=== PATIENT | female | born 1945 | race Caucasian/White ===

== ENCOUNTER → 2016-02-23 | Outpatient (CLI) | payer OTHER, MEDICAID ==
--- NOTE | 2016-02-23 18:01 | DX ---
Thoracic spine series 2 views 1115 hours. History: Followup fusion. Findings: Comparison to June 23, 2015 and February 26, 2015. Pedicle screws and paraspinal rods are present from T5 through L3 in stable position and alignment. M arked compression of T9 is stable with bone graft material at this level. Vertebroplasty cement is pr esent at T8. No new compression fractures are appreciated. There are no new lytic or sclerotic osseou s lesions. Impression: 1. Stable thoracolumbar fusion with pedicle screws and paraspinal rods from T5 through L3 as detailed above.
== END ==
LOC: FIMAGING 11:11
PROVIDERS: ATTEND Physician Assistant Surgical
DX: Z09 Encounter for follow-up examination after completed treatment for conditions other than malignant neoplasm (principal); Z98.1 Arthrodesis status; M43.24 Fusion of spine, thoracic region

== ENCOUNTER → 2016-04-10 | Outpatient (CLI) | payer OTHER, MEDICAID | LOC: BHFA 11:30 | PROVIDERS: ATTEND Internal Medicine Cardiovascular Disease | DX: I35.0 Nonrheumatic aortic (valve) stenosis (principal) ==

== ENCOUNTER → 2016-04-19 | Outpatient (CLI) | payer OTHER, MEDICAID | LOC: BHCLAF 15:00 | PROVIDERS: ATTEND Internal Medicine Cardiovascular Disease | DX: I35.0 Nonrheumatic aortic (valve) stenosis (principal); E78.5 Hyperlipidemia, unspecified; I10 Essential (primary) hypertension; I25.810 Atherosclerosis of coronary artery bypass graft(s) without angina pectoris; R09.89 Other specified symptoms and signs involving the circulatory and respiratory systems | CPT/HCPCS: 93005-PO ==

== ENCOUNTER → 2016-06-05 | Outpatient (CLI) | payer OTHER, MEDICAID | LOC: BHFA 11:30 | PROVIDERS: ATTEND Internal Medicine Cardiovascular Disease | DX: R09.89 Other specified symptoms and signs involving the circulatory and respiratory systems (principal); E78.00 Pure hypercholesterolemia, unspecified; E78.5 Hyperlipidemia, unspecified ==

== ENCOUNTER → 2016-07-25 | Outpatient (CLI) | payer OTHER, MEDICAID | LOC: FIMAGING 12:55 | PROVIDERS: ATTEND Physician Assistant Surgical | DX: S22.070D Wedge compression fracture of T9-T10 vertebra, subsequent encounter for fracture with routine healing (principal); M50.323 Other cervical disc degeneration at C6-C7 level; M99.71 Connective tissue and disc stenosis of intervertebral foramina of cervical region; M12.88 Other specific arthropathies, not elsewhere classified, other specified site; M43.22 Fusion of spine, cervical region; M54.5 Low back pain; M54.6 Pain in thoracic spine; Z98.1 Arthrodesis status ==

== ENCOUNTER 2016-07-30 19:36 | Observation (INO) | payer OTHER, MEDICAID ==
--- NOTE | 2016-07-30 19:40 | EDPHY ---
H & P Time Seen by Provider: 07/30/16 19:37 HPI/ROS: CHIEF COMPLAINT: Passed out in the parking lot HISTORY OF PRESENT ILLNESS: 70-year-old woman history of coronary artery bypass surgery and diabetes was walking her dog and had an episode of syncope in the middle of parking lot. Landed on her right side. Brought in by EMS with glucose 160. The patient recalls that she was walking her dog pepper when she got discomfort in her head and then the next thing she knew she was lying on the ground with a bystander coming over to her. She did not get lightheaded or dizzy prior to the incident. She did not have chest pain or shortness of breath. Patient denies any injuries. She denies any change in her chronic neck or back pain after the fall. No weakness or numbness in extremities. No change in her chronically poor vision. REVIEW OF SYSTEMS: Eye: no change in vision, has chronic visual difficulties and is legally blind from her diabetes. ENT: no sore throat Cardiac: No chest pain Pulmonary: no cough or SOB Abdomen: Has chronic constipation, unchanged. No vomiting or abdominal pain. Musculoskeletal: Chronic neck and back pain, unchanged Skin: no rash Neuro: HPI Constitutional: no fever, she had decreased oral intake today and nothing to eat or drink yesterday. : Chronic urinary incontinence, unchanged A comprehensive 10 point review of systems is otherwise negative aside from elements mentioned in the history of present illness. PAST MEDICAL HISTORY: Coronary artery disease with coronary artery bypass grafting, insulin-dependent diabetes. Social history: Nonsmoker General Appearance: Alert and conversant, cooperative. Eyes: No scleral icterus. Extraocular motion intact. ENT, Mouth: Normal mucous membranes. No tongue laceration or abrasion. Respiratory: Normal respiratory effort, breath sounds equal, lungs are clear to auscultation. Cardiovascular: Regular rate and rhythm. 3/6 systolic murmur. Gastrointestinal: Abdomen is soft and non tender. Neurological: Alert and oriented x3. Normally conversant. Face symmetric, normal movement and sensation in all extremities. Skin: Warm and dry, no rashes. No bruising or laceration. Musculoskeletal: No midline spinal tenderness to palpation. Psychiatric: Not agitated. Emergency Department course/MDM: High risk patient with diabetes and cardiovascular disease presents with syncope without prodrome. Head CT, EKG, labs to include troponin. 2004: Hematocrit noted is increased from previous. 2039: Results discussed with the patient, plan to admit for syncope without a prodrome in a patient with multiple risk factors for dysrhythmia. Smoking Status: Never smoked Constitutional: Initial Vital Signs Temperature (C) 36.9 C 07/30/16 19:47 Heart Rate 86 07/30/16 19:47 Respiratory Rate 16 07/30/16 19:47 Blood Pressure 91/52 L 07/30/16 19:47 O2 Sat (%) 95 07/30/16 19:47 O2 Delivery Mode Room Air O2 (L/minute) 2 Allergies/Adverse Reactions: cyclobenzaprine HCl [From Flexeril] Allergy (Severe, Verified 07/30/16 19:50) HALLUCINATIONS diazepam [From Valium] Allergy (Severe, Verified 07/30/16 19:50) HALLUCINATIONS acetaminophen [From [place]] Allergy (Verified 07/30/16 19:50) Vomiting hydrocodone bitartrate [From [place]] Allergy (Verified 07/30/16 19:50) Vomiting Home Medications: Medication Instructions Recorded Rosuvastatin Calcium [Crestor 20mg 20 mg PO HS 01/06/14 (*)] Calcium Carb W/Vit D [Calcium Carb 500 mg PO BID #0 tab 02/26/15 W/Vit D 500/200 (*)] Insulin Pump 0 unit SQ AD 02/26/15 Lisinopril/Hctz 10/12.5 mg 1 ea PO DAILY #0 tab 02/26/15 [Zestoretic/Prinzide 10/12.5MG (*)] Polyethylene Glycol 3350 [Miralax 17 gm PO TID #0 pkt 02/26/15 17 gm (*)] Sennosides/Docusate Sodium 1 - 2 tab PO BID #0 tab 02/26/15 [Senokot-S] Solifenacin Succinate [Vesicare 5 10 mg PO HS #0 tab 02/26/15 MG (*)] Venlafaxine Xr [Effexor Xr] 150 mg PO BID #0 cap 02/26/15 metFORMIN HCL [Glucophage 500 mg 500 mg PO BIDMEAL #0 tab 02/26/15 (*)] Enoxaparin [Lovenox 40 MG (*)] 40 mg SC DAILY #13 syr 03/10/15 Methocarbamol [Robaxin 750 mg (*)] 750 mg PO BID PRN #60 tab 03/10/15 morphINE SR [MS Contin/Oramorph SR 30 mg PO BID #60 tab 03/10/15 30 mg (*)] oxyCODONE IR [Oxycodone Ir (*)] 5 mg PO Q4 PRN #60 tab 03/10/15 traMADol [Ultram 50 mg (*)] 100 mg PO QID #120 tab 03/10/15 Medical Decision Making - Diagnostics EKG Interpretation: 12-lead EKG interpreted by me; official reading is in trace master. My interpretation is sinus rhythm with incomplete right bundle branch block and anterior infarct. Imaging Results: Imaging Impressions Head CT 07/30/16 19:56 Impression: 1. No acute intracranial findings. 2. Diffuse cerebral atrophy with periventricular and subcortical low attenuation consistent with chronic microvascular ischemic gliosis. Findings discussed with Brigida Parra answering for Maxim De Leon 07/30/2016 at 20 :34. CT head negative per Aiden at 2034 Differential Diagnosis: Differential diagnosis considered for syncope including but not limited to vasovagal syncope, arrhythmia, dehydration, and blood loss. - Data Points Laboratory Results: Laboratory Results 07/30/16 19:41 07/30/16 19:41 07/30/16 07/30/16 19:41 19:41 WBC 7.81 10^3/uL 10^3/uL (3.80-9.50) RBC 4.34 10^6/uL 10^6/uL (4.18-5.33) Hgb 9.8 g/dL L g/dL (12.6-16.3) Hct 33.4 % L % (38.0-47.0) MCV 77.0 fL L fL (81.5-99.8) MCH 22.6 pg L pg (27.9-34.1) MCHC 29.3 g/dL L g/dL (32.4-36.7) RDW 20.5 % H % (11.5-15.2) Plt Count 282 10^3/uL 10^3/uL (150-400) MPV 10.9 fL fL (8.7-11.7) Neut % (Auto) 47.9 % % (39.3-74.2) Lymph % (Auto) 44.2 % % (15.0-45.0) [place] % (Auto) 6.4 % % (4.5-13.0) Eos % (Auto) 0.9 % % (0.6-7.6) Baso % (Auto) 0.5 % % (0.3-1.7) Nucleat RBC Rel Count 0.3 % H % (0.0-0.2) Absolute Neuts (auto) 3.74 10^3/uL 10^3/uL (1.70-6.50) Absolute Lymphs (auto) 3.45 10^3/uL H 10^3/uL (1.00-3.00) Absolute Monos (auto) 0.50 10^3/uL 10^3/uL (0.30-0.80) Absolute Eos (auto) 0.07 10^3/uL 10^3/uL (0.03-0.40) Absolute Basos (auto) 0.04 10^3/uL 10^3/uL (0.02-0.10) Absolute Nucleated RBC 0.02 10^3/uL H 10^3/uL (0-0.01) Immature Gran % 0.1 % % (0.0-1.1) Immature Gran # 0.01 10^3/uL 10^3/uL (0.00-0.10) Platelet Estimate ADEQUATE (ADEQ) Polychromasia 1+ H Hypochromasia 2+ H Microcytic Cells 1+ H Sodium 145 mEq/L H mEq/L (134-144) Potassium 4.1 mEq/L mEq/L (3.5-5.2) Chloride 110 mEq/L mEq/L (97-110) Carbon Dioxide 22 mEq/l mEq/l (22-31) Anion Gap 13 mEq/L mEq/L (8-16) BUN 24 mg/dL H mg/dL (7-23) Creatinine 1.0 mg/dL mg/dL (0.6-1.0) Estimated GFR 55 Glucose 106 mg/dL H mg/dL (70-100) Calcium 10.0 mg/dL mg/dL (8.5-10.4) Troponin I < 0.012 ng/mL ng/mL (0-0.034) Departure - Departure Disposition: [facility] Inpatient Acute Clinical Impression: Syncope Qualifiers: Syncope type: unspecified Qualified Code(s): R55 - Syncope and collapse Condition: Good Referrals: Patient,NotPresent [Unknown] - As per Instructions Haleigh Alcocer MD [[facility] Primary Care Provider] - As per Instructions
[2016-07-30 19:50] LABS: % IMMATURE GRANULYOCYTES 0.1 % (0.0-1.1); ABSOLUTE IMMATURE GRANULOCYTES 0.01 10^3/uL (0.00-0.10); ABSOLUTE NRBC COUNT 0.02 10^3/uL (0-0.01); ADD DIFF? NO; ADD MORPH? YES; ADD SCAN? NO; ATYPICAL LYMPHOCYTE FLAG 0 (0-99); FRAGMENT RBC FLAG 20 (0-99); HEMATOCRIT 33.4 % (38.0-47.0); HEMOGLOBIN 9.8 g/dL (12.6-16.3); LEFT SHIFT FLG 0 (0-99); LIPEMIA HEMOLYSIS FLAG 70 (0-99); MEAN CELL HEMOGLOBIN 22.6 pg (27.9-34.1); MEAN CELL HEMOGLOBIN CONCENTR. 29.3 g/dL (32.4-36.7); MEAN PLATELET VOLUME 10.9 fL (8.7-11.7); NRBC-AUTO% 0.3 % (0.0-0.2); PLATELET CLUMPS FLAG 0 (0-99); PLATELET COUNT 282 10^3/uL (150-400); RED BLOOD CELL COUNT 4.34 10^6/uL (4.18-5.33)
--- NOTE | 2016-07-30 19:52 | CPEKG ---
Heart Rate: 81 RR Interval: 741 P-R Interval: 152 QRSD Interval: 108 QT Interval: 404 QTC Interval: 469 P [place]: 49 QRS [place]: -5 T Wave [place]: 37 EKG Severity - ABNORMAL ECG - EKG Impression: SINUS RHYTHM EKG Impression: INCOMPLETE RIGHT BUNDLE BRANCH BLOCK EKG Impression: ANTERIOR INFARCT, AGE INDETERMINATE Electronically Signed By: Maxim De Leon 30-Jul-2016 19:59:47
[2016-07-30 19:54] LABS: RED CELL DISTRIBUTION WIDTH 20.5 % (11.5-15.2)
[2016-07-30 20:00] LABS: ANION GAP 13 mEq/L (8-16); CARBON DIOXIDE 22 mEq/l (22-31); CHLORIDE 110 mEq/L (97-110); GLOMERULAR FILTRATION RATE 55; GLUCOSE 106 mg/dL (70-100); POTASSIUM 4.1 mEq/L (3.5-5.2); SODIUM 145 mEq/L (134-144)
[2016-07-30 20:11] LABS: TROPONIN I < 0.012 ng/mL (0-0.034)
[2016-07-30 20:22] LABS: HYPOCHROMIA 2+; MICROCYTES 1+; PLATELET ESTIMATE ADEQUATE (ADEQ); POLYCHROMASIA 1+
[2016-07-30] MEDS ORDERED: oxyCODONE IR 5 MG TAB PO PRN (22:23)
[2016-07-30] MEDS ORDERED: ACETAMINOPHEN 325 MG TAB PO PRN (22:23)
[2016-07-30] MEDS ORDERED: ONDANSETRON 4 MG/2 ML VIAL IVP PRN (22:23)
[2016-07-30] MEDS ORDERED: ONDANSETRON DISINTEGRATING 4 MG TAB PO PRN (22:23)
[2016-07-30] MEDS ORDERED: D50W 25 GM/50 ML SYR IVP PRN (22:37)
[2016-07-30] MEDS ORDERED: Insulin Pump, Patient Own MISC SCH (22:45)
[2016-07-30] MEDS ORDERED: NS 1,000 ML IV SCH (22:45)
[2016-07-30] MEDS ORDERED: ROSUVASTATIN CALCIUM 20 MG TAB PO SCH (23:30)
--- NOTE | 2016-07-30 23:52 | GHP ---
[f rep st] HISTORY AND PHYSICAL DATE OF ADMISSION: 07/30/2016 CHIEF COMPLAINT: Syncope. HISTORY: This is a 70-year-old female with a past medical history that includes coronary artery dis ease as well as spinal stenosis with cord compression and need for multiple spinal surgeries as well as diabetes who presents with complaint of syncope occurring twice within the last month. The most recent episode was today when patient noted that her neck was hurting and she was standing next to a pole attempting to get her neck to start hurting less when she syncopized. At first, she describe s this as having no preceding warning, but when speaking to her further, she says she had a feeling that she needed to go and lie down and that in the past when she has had this feeling, if she gets t o lie down and drink some water, this sensation usually goes away. This history is limited by stephenie buitrago being a fairly poor historian. She notes that she had a similar episode about a month ago when s he was in the bathtub. At that point, she also had the sensation that she needed to go lie down, bu t before she was able to get to her bed. She fainted. She does state that this happens intermitten tly, generally without loss of consciousness but an ability to get herself to lie down. It is not c lear that it is always preceded by bouts of pain, though she acknowledges that this may be a trigger . She has not had any chest pain. She did have a CABG back in 1992 and states she has not had any coronary issues since then. She was last seen by Cardiology several months ago, at which point, the y performed an echocardiogram and carotid ultrasound, which she reports as being normal. PAST MEDICAL HISTORY: Includes: 1. Coronary artery disease. 2. Spinal stenosis requiring multiple spinal surgeries followed primarily by Dr. Barksdale. 3. Hypertension. 4. Diabetes. PAST SURGICAL HISTORY: Again, multiple spinal surgeries, including T9 through L3 posterior fusion w ith revisions and extensions of these fusions secondary to ongoing severe stenosis and cord compress ion. She does have associated chronic weakness and chronic pain. SOCIAL HISTORY: Patient lives alone. She denies tobacco, alcohol, or drugs. FAMILY HISTORY: Noncontributory. REVIEW OF SYSTEMS: A 10-point review of systems obtained, negative except as per HPI. MEDICATIONS: Include: 1. Vitamin B12. 2. Eye drops. 3. Omeprazole. 4. Multivitamin. 5. Vitamin D2. 6. Lisinopril/hydrochlorothiazide. 7. Insulin pump. 8. Senna. 9. Simvastatin. 10. Metformin. 11. Venlafaxine. ALLERGIES: Include hydrocodone, diazepam, and cyclobenzaprine. PHYSICAL EXAMINATION: VITAL SIGNS: BP 107/42, heart rate 74, respiratory rate 16, O2 sats 100% on 2 L. GENERAL APPEARANCE: Chronically ill-appearing female. She is awake and alert, in no acute di stress. EYES: Anicteric. Pupils are pinpoint. HENT: Oropharynx clear. CARDIOVASCULAR: Distant , systolic murmur appreciated. PULMONARY: CTA bilaterally. Normal work of breathing. ABDOMEN: S oft, nontender, nondistended. EXTREMITIES: No clubbing, cyanosis, or edema. SKIN: Warm dry well perfused. NEURO/PSYCH: Patient shows some evidence of cognitive deficits but not clearly encephalo pathic, probably likely signs of early dementia. She is oriented and appropriate otherwise. CLINICAL DATA: White blood cell count 7.8, hematocrit of 33.4, up from 26.1. Sodium of 145. Creat inine of 1, up from 0.5. Glucose of 106. Troponin is negative. EKG: This was personally reviewed and interpreted, and shows sinus rhythm, incomplete right bundle branch block. There are no old available to compare in our system. Head CT: This is personally reviewed and interpreted and shows no acute findings. There is diffuse cerebral atrophy and evidence of chronic microvascular ischemic gliosis. ASSESSMENT AND PLAN: This is a 70-year-old female with a past medical history of coronary artery di sease and severe spinal stenosis presenting with syncope. 1. Syncope. Initially difficult to get a clear history from the patient and found on the initial e valuation as if she had absolutely no warning but on further discussion, it sounds as if she was rick re that she was going to faint but just has difficulty verbalizing that. She is noted to be hypoten sive with evidence of volume depletion on laboratory studies, including an acute kidney injury, hype rnatremia, and elevated BUN. Suspect this was either vasovagal related to her acute onset of severe pain versus orthostatic hypotension related. Will hold her BP medications given her current hypote nsion. Will monitor overnight on telemetry with serial EKGs and troponins and obtain an echocardiog tonny in the morning given her extensive cardiac history and heart murmur on evaluation. She did appa rently recently have carotid ultrasounds, so we will attempt to find this report rather than repeat this study at this point. 2. Acute kidney injury. Troponin up to 1.0 from 0.5. She does have elevated BUN as well consisten t with prerenal etiology. Will provide IV fluids overnight and recheck in the morning. Will hold h er lisinopril/ hydrochlorothiazide, especially given her concurrent hypotension. 3. Hypotension. As above, blood pressure has been low since arrival. She does appear mildly dry o n exam as well. Will hold blood pressure medications and monitor overnight. 4. Diabetes. I will continue her insulin and monitor glucose while inhouse. Query if this could b e contributing to her presentation. 5. Spinal stenosis. This has been quite a significant issue for this patient. She is followed dayton sely by Dr. Barksdale. She has had multiple surgical interventions in the past. She does not h ave any new neurologic symptoms per her report. 6. Disposition: Observation status. I suspect she will need less than 48 hours stay for evaluatio n and management of above. 7. Patient is new to my care. Old records reviewed, summarized as per HPI and past medical history . Care plan reviewed with ER physician, including plans for telemetry monitoring overnight. /[id number]/MODL
[2016-07-31] MEDS: VENLAFAXINE XR 150 MG CAP PO SCH ×2 (00:43→08:18)
[2016-07-31] MEDS: CYCLOSPORINE 0.05% 1 EACH BOX EACHEYE SCH ×2 (00:45→08:16)
[2016-07-31 04:18] LABS: COLOR YELLOW; LEUKOCYTE ESTERASE,URINE TRACE (NEGATIVE); NITRITE,URINE NEGATIVE (NEGATIVE)
[2016-07-31 04:22] LABS: HYALINE CASTS 15-25 /lpf (0-1); MUCUS TRACE /lpf (NONE-1+)
[2016-07-31 04:48] LABS: % IMMATURE GRANULYOCYTES 0.2 % (0.0-1.1); ABSOLUTE IMMATURE GRANULOCYTES 0.02 10^3/uL (0.00-0.10); ADD DIFF? NO; ADD MORPH? YES; ADD SCAN? NO; ANION GAP 8 mEq/L (8-16); ATYPICAL LYMPHOCYTE FLAG 0 (0-99); CALCIUM 9.3 mg/dL (8.5-10.4); CARBON DIOXIDE 21 mEq/l (22-31); CHLORIDE 111 mEq/L (97-110); CREATININE 0.7 mg/dL (0.6-1.0); FRAGMENT RBC FLAG 20 (0-99); GLOMERULAR FILTRATION RATE > 60; GLUCOSE 89 mg/dL (70-100); HEMATOCRIT 28.1 % (38.0-47.0); HEMOGLOBIN 8.5 g/dL (12.6-16.3); LEFT SHIFT FLG 0 (0-99); LIPEMIA HEMOLYSIS FLAG 80 (0-99); MEAN CELL HEMOGLOBIN 23.2 pg (27.9-34.1); MEAN CELL HEMOGLOBIN CONCENTR. 30.2 g/dL (32.4-36.7); MEAN CELL VOLUME 76.8 fL (81.5-99.8); PLATELET CLUMPS FLAG 10 (0-99); PLATELET COUNT 245 10^3/uL (150-400); POTASSIUM 4.1 mEq/L (3.5-5.2); RED BLOOD CELL COUNT 3.66 10^6/uL (4.18-5.33); SODIUM 140 mEq/L (134-144)
[2016-07-31 04:51] LABS: RED CELL DISTRIBUTION WIDTH 20.4 % (11.5-15.2)
[2016-07-31 04:59] LABS: TROPONIN I < 0.012 ng/mL (0-0.034)
[2016-07-31 05:14] LABS: HYPOCHROMIA 1+; MACROCYTES 1+; MICROCYTES 1+
[2016-07-31 05:15] LABS: PLATELET ESTIMATE ADEQUATE (ADEQ); POLYCHROMASIA 1+
--- NOTE | 2016-07-31 08:19 | HOSPPROG ---
Hospitalist Progress Note Assessment/Plan: #Syncope: suspect dehydration -I reviewed clinic notes. TTE Mar 2016 showed mild with mean gradient 17mmHg , trace MR, diastolic dysfunction -stress in 2013 WNL -Carotid doppler 05/29 with <50% stenosis, BL -hypoglycemia may contributeed #KALLIE: resolve wit IVFs #HLD: statin #HTN: BP meds held with soft BP #DC today Subjective: no CP or dizziness Objective: Vital Signs Temp Pulse Resp BP Pulse Ox 36.7 C 75 12 123/44 H 97 07/31/16 00:09 07/31/16 03:57 07/31/16 03:57 07/31/16 03:57 07/31/16 03:57 Laboratory Results 07/31/16 04:20 07/31/16 04:20 07/30/16 07/31/16 08/01/16 05:59 05:59 05:59 Intake Total 493 Output Total 135 Balance 358 - Physical Exam Constitutional: no apparent distress Eyes: PERRL Ears, Nose, Mouth, Throat: moist mucous membranes Cardiovascular: regular rate and rhythym Respiratory: no respiratory distress, no rales or rhonchi Gastrointestinal: normoactive bowel sounds Genitourinary: no bladder fullness Skin: warm Musculoskeletal: full muscle strength Neurologic: AAOx3 ICD10 Worksheet Patient Problems: Problems Problem Status Onset Compression fracture of thoracic vertebra Acute Spinal cord compression Acute Status post cervical arthrodesis Acute Syncope Acute
[2016-07-31] MEDS ORDERED: NAPHAZOLINE HCL/PHENIR 15 ML OPHT.BTL EACHEYE SCH (09:00)
[2016-07-31] MEDS ORDERED: MULTIVITAMINS 1 EACH TAB PO SCH (09:00)
[2016-07-31] MEDS ORDERED: NON-FORMULARY NEW DRUG (Omeprazole [Omeprazole] 40 MG) PO SCH (09:00)
[2016-07-31] MEDS ORDERED: PANTOPRAZOLE SODIUM 40 MG TAB PO SCH (09:00)
[2016-07-31] MEDS ORDERED: ENOXAPARIN 40 MG/0.4 ML SYR SC SCH (09:00)
[2016-07-31] MEDS ORDERED: VENLAFAXINE XR 150 MG CAP PO SCH (09:00)
--- NOTE | 2016-07-31 09:11 | CPEKG ---
Heart Rate: 73 RR Interval: 822 P-R Interval: 168 QRSD Interval: 118 QT Interval: 432 QTC Interval: 476 P [place]: 43 QRS [place]: 1 T Wave [place]: 18 EKG Severity - ABNORMAL ECG - EKG Impression: SINUS RHYTHM EKG Impression: INCOMPLETE RIGHT BUNDLE BRANCH BLOCK EKG Impression: PROBABLE ANTEROSEPTAL INFARCT, OLD Electronically Signed By: Aiden Richards 31-Jul-2016 17:37:41
[2016-07-31 11:38] LABS: HEMOGLOBIN A1C 7.4 % (4.0-6.0)
[2016-07-31 12:00] VITALS: BP 104/49; PULSE 86; RESP 18; TEMP 97.6; O2SAT 96
--- NOTE | 2016-07-31 13:58 | GDS ---
[f rep st] DISCHARGE SUMMARY DISCHARGE DIAGNOSES: 1. Syncope. 2. Coronary artery disease. 3. Spinal stenosis status post several surgeries. 4. Hypertension. 5. Diabetes. HISTORY OF PRESENT ILLNESS: This patient is a pleasant 70-year-old female with a history of coronary artery disease and spinal stenosis with cord compression status post several spinal surgeries, who presented after having syncope twice within the last month. Most recent episode was yesterday. It was noted when her neck was hurting. She was standing next to a pole. She had a feeling that she needed to go lie down. She says that she has not been eating and drinking as much lately because she has had a decreased appetite. Some foods taste funny to her. She does express that her mood has been more down given her chronic back pain. She denied any prodromal chest pain, shortness of breath dizziness clamminess of lightheadedness. HOSPITAL COURSE BY PROBLEM: 1. Syncope:L suspect secondary to dehydration, given her story of decreased p.o. intake and mildly elevated creatinine and BUN. Anti-hypertensives and hypoglycemia are possible etiologies too. No evidence of arrhythmia on EKG and negative troponins. Echocardiogram done on April 10, [address] Hameed that showed mild and diastolic dysfunction. Carotid ultrasound in May 2016 that showed less than 50% stenosis bilaterally. I do not think she needs further cardiac evaluation at this time. She was evaluated by Dr. Latham who stated she could follow up with him next week. If symptoms were to persist, could consider a loop recorder. Hold BP meds until follow up with PCP. 2. KALLIE secondary to decreased p.o. intake. This resolved with IV fluids. 3. Hypotension, again secondary to dehydration. Will hold her blood pressure medication until she follows up with her PCP. 4. Controlled diabetes: reports having lows to 40s couple times weekly. She self-boluses with pump. Decreased PO contributing. She understands to call her Systems Operator, Dr. Wilkinson, today. 5. Spinal stenosis. She is followed closely by Dr. Barksdale and has had multiple surgeries in the past. She has chronic pain that she states is not well-controlled. Recommend follow up with Neurology. 6. Depression: mood has been more down over the last several months. Likely contributing to her decreased appetite. She is on venlafaxine, but I recommended that she follow up and get a therapist as well, and she is agreeable. DISPOSITION: The patient stable for discharge. FOLLOWUP ON DISCHARGE: 1. With her PCP for repeat blood pressure. 2. Dr. Latham with Cardiology. 3. Referral for a therapist. Time spent on DC: >35 min spent counseling patient on medications and coordinating FU /[id number]/MODL MTDD
--- NOTE | 2016-07-31 16:48 | GCON ---
[f rep st] CONSULTATION CARDIOLOGY CONSULTATION FOR HER EPISODE OF SYNCOPE This patient was out walking with her dog yesterday and she had been feeling quite well. She felt that something was wrong when she was about to go across the street. She stopped and she was having very severe posterior neck pain which she gets quite frequently. She has had this neck pain for a long period of time. It was bothering her a good deal yesterday. She felt like something was a little bit wrong. She said she was not lightheaded or dizzy. Not having chest pain or shortness of breath. So she tipped her head down and tried to tilt it and massage the painful parts in the posterior neck. What she did was she moved her head up and when she moved her head up, she started to feel like she might black out and she did black out. She came to on the ground and was looking up. People were around her. She had no incontinence. There were no abnormal motor events or activity on her part. She had no headache, stiff neck , sore throat. She was totally oriented. She came to the hospital for evaluation at that time. She feels like she may well have been quite dehydrated as she had not been drinking. She herself had not been having chest pain, arm pain, jaw pain. No lightheadedness, dizziness regularly. She has not had trauma to the head or neck. She has not had visual or other cranial neuropathy symptoms. She has longstanding hypertension, diabetes, hyperlipidemia. She is overweight. She has had a myocardial infarction. She had coronary artery bypass grafting in 1992. She sees Dr. Young Hameed. She recently had an echocardiographic study and a carotid study that were both unremarkable, and her last stress test was negative. The patient has had 1 other episode of losing consciousness. At that time, she was in the bathtub and fell. Otherwise she has not previously had this problem. RISK FACTORS: Negative for smoking and for hyperuricemia. FAMILY HISTORY: No history of premature coronary artery disease. No history of unexplained sudden at the young age. She has been taking her usual medications, doing well, and not having any other troubles. ALLERGIES: Hydrocodone, diazepam, and cyclobenzaprine. MEDICATIONS: Eyedrops, omeprazole, vitamins, lisinopril hydrochlorothiazide, insulin pump, simvastatin, metformin, venlafaxine. PAST SURGICAL HISTORY: She had many surgical procedures by Dr. Barksdale, she says at least 6. She is being evaluated right now for possible further disease that needs to be surgically treated. REVIEW OF SYSTEMS: Negative except for as noted above and her chronic problems with pain and weakness, decreased range of motion secondary to many spinal procedures. SOCIAL HISTORY: She lives in [place] and she lives with her dog. She worked for many years at [employer]. She does not smoke. She does not drink significant amounts of alcohol. PHYSICAL EXAMINATION: VITAL SIGNS: Her blood pressure is 107/42, heart rate 74 , respiratory rate 16. HEENT: Pupils are equal and reactive. Mucous membranes and mouth moist. NECK: Supple. CARDIOVASCULAR: S1, S2. Systolic ejection murmur at second right intercostal space. ABDOMEN: Soft, nontender, without masses. CVA: No tenderness. PULMONARY: Rhonchi bilaterally. No rales, wheezing, or dullness. ABDOMEN: Soft, nontender, without masses. EXTREMITIES: No edema, inflammation, or ulceration. NEURO: Cranial nerves 2- 12 grossly normal. Motor and sensory exam intact. PSYCH: No obvious anxiety or depression. ASSESSMENT AND PLAN: 1. Syncope. 2. Aortic stenosis. 3. Coronary artery disease. 4. Status post coronary artery bypass grafting. 5. Hypertension. 6. Diabetes mellitus. 7. Dyslipidemia. 8. Severe back disease. 9. Possible dehydration. The patient has had syncope. She sees Dr. Young Hameed. She has had an echocardiogram which shows mild aortic stenosis and that was done within the last 5 months. Her ejection fraction is normal. She does not have left ventricular hypertrophy. She has mild aortic sclerosis; you can hear this murmur. Her valve area by continuity equation is 1.0 sq cm. Her peak aortic gradient is 28 mmHg. The patient has had a carotid ultrasound as well. She has mild calcific disease , left than 50% stenosis in the right common carotid and less than 50% in the left internal carotid. She is a woman who does have coronary artery disease. Is not having any symptoms of angina and has no findings of heart failure. I have discussed her case with the hospitalist and dehydration certainly is possible and that is what the patient thinks was happening. However, we have to be very careful about this and she is going to follow up with Dr. Hameed as an outpatient. She would like to get out of here today and then he can evaluate her carefully and decide if he thinks that she needs further evaluation or a LINQ recorder or other arrhythmia workup as well. Since she has fainted twice now, I think seeing the neurologist is a very good idea and getting complete neurologic evaluation from their service as well. She is at risk of fainting again and she is aware of that and knows that she can hurt herself. The cause of this syncope is not clear and needs further aggressive very quick evaluation and she is going to seek that out as an outpatient. All her questions have been answered. We have talked about prevention. She obviously needs to keep exercising for her coronary artery disease. Also I would with these unexplained events, do a Lexiscan on her as soon as possible as well and the plan is that she would like to do that as an outpatient. /[id number]/MODL MTDD
[2016-07-31] MEDS ORDERED: ROSUVASTATIN CALCIUM 20 MG TAB PO SCH (21:00)
[2016-08-01] MEDS ORDERED: AMMONIUM LACTATE 12% 8 OZ LOTION TP SCH (09:00)
[2016-08-01] MEDS ORDERED: SENNOSIDES/DOCUSATE SODIUM TAB PO SCH (09:00)
== END 2016-07-31 14:52 | disposition home or self-care (01) ==
LOC: EDUNIT# → INTOOBSV 20:35 → F2N 22:45
PROVIDERS: ADMIT Internal Medicine; ATTEND Internal Medicine
DX: R55 Syncope and collapse (principal); E87.1 Hypo-osmolality and hyponatremia; I25.10 Atherosclerotic heart disease of native coronary artery without angina pectoris; N17.9 Acute kidney failure, unspecified; I35.0 Nonrheumatic aortic (valve) stenosis; E11.9 Type 2 diabetes mellitus without complications; Z79.4 Long term (current) use of insulin; Z96.41 Presence of insulin pump (external) (internal); Z98.1 Arthrodesis status; I10 Essential (primary) hypertension; E66.3 Overweight; Z95.1 Presence of aortocoronary bypass graft
CPT/HCPCS: 70450; 93005; 97166; G8987; G8988; J1650

== ENCOUNTER → 2016-08-25 | Outpatient (CLI) | payer OTHER, MEDICAID | LOC: BHFA 09:30 | PROVIDERS: ATTEND Internal Medicine Cardiovascular Disease | DX: I25.10 Atherosclerotic heart disease of native coronary artery without angina pectoris (principal); R55 Syncope and collapse | CPT/HCPCS: 78452; 93017; A9500; J2785 ==

== ENCOUNTER → 2016-09-11 | Outpatient (CLI) | payer OTHER, MEDICAID | LOC: FIMAGING 12:36 | PROVIDERS: ATTEND Physician Assistant Surgical | DX: Z09 Encounter for follow-up examination after completed treatment for conditions other than malignant neoplasm (principal); Z98.1 Arthrodesis status ==

== ENCOUNTER → 2017-01-31 | Outpatient (CLI) | payer OTHER, MEDICAID | LOC: FIMAGING 12:27 | PROVIDERS: ATTEND Internal Medicine | DX: Z12.31 Encounter for screening mammogram for malignant neoplasm of breast (principal) | CPT/HCPCS: G0202 ==

== ENCOUNTER → 2018-07-17 | Outpatient (CLI) | payer OTHER, MEDICAID | LOC: BMCIMAGING 10:01 ==